=== PATIENT | female | born 1980 | race Caucasian/White ===

== ENCOUNTER 2019-01-14 17:55 | Emergency (ER) | payer MEDICAID ==
[~2019-01-14] VITALS: Ht 157.5 cm; Wt 85.3 kg
[2019-01-14 18:13] VITALS: BP 121/79
[2019-01-14] MEDS ORDERED: FLUO40CA10 PO (19:28)
[2019-01-14] MEDS ORDERED: FLUO20CA39 PO (19:28)
[2019-01-14] MEDS ORDERED: BUPR-94 PO (19:28)
== END 2019-01-14 19:35 | disposition home or self-care (01) ==
LOC: ER 17:55
DX: F41.9 Anxiety disorder, unspecified (principal); Z76.0 Encounter for issue of repeat prescription; Z79.899 Other long term (current) drug therapy
CPT/HCPCS: 99283